=== PATIENT | female | born 1995 | race Caucasian/White ===

== ENCOUNTER 2020-04-28 06:19 | Inpatient (IN) | payer SELFPAY ==
[2020-04-28] MEDS ORDERED: Sodium Chloride 0.9% 10 ML Syringe FLUSH PRN (19:10)
[2020-04-28] MEDS ORDERED: Nalbuphine 10 MG/ML Syringe IVPUSH PRN (19:10)
[2020-04-28] MEDS ORDERED: Lidocaine 1% 50 ML MDV INJECT ONE (19:10)
[2020-04-28] MEDS ORDERED: Calcium Carbonate 500 MG Tab.Chew PO PRN (19:10)
[2020-04-28] MEDS ORDERED: Acetaminophen 325 MG Tab PO PRN (19:10)
[2020-04-28] MEDS ORDERED: Ondansetron 4 MG/2 ML SDV IVPUSH PRN (19:10)
[2020-04-28] MEDS ORDERED: Oxytocin/Lactated Ringers 10 UNIT/1,000 ML BAG IV SCH ×2 (19:15)
--- NOTE | 2020-04-28 20:02 | PCM.LDHP ---
L&D History of Present Illness - General Date of Service: 04/28/20 Admit Problem/Dx: Patient Status Order with Admit Dx/Problem 04/28/20 19:10 Patient Status [ADT] Routine Admission Diagnosis/Problem Admission Diagnosis/Problem - History of Present Illness Introduction:: 25 year old at 40w2 days with mild range pressures in clinic. - Related Data Allergies/Adverse Reactions: Allergies Allergy/AdvReac Type Severity Reaction Status Date / Time No Known Allergies Allergy Verified 04/28/20 19:12 H&P Review of Systems - Review of Systems: Review Of Systems: See Below General: Reports: No Symptoms HEENT: Reports: No Symptoms Pulmonary: Reports: No Symptoms Cardiovascular: Reports: No Symptoms Gastrointestinal: Reports: No Symptoms Genitourinary: Reports: No Symptoms Musculoskeletal: Reports: No Symptoms Skin: Reports: No Symptoms Psychiatric: Reports: No Symptoms Neurological: Reports: No Symptoms Hematologic/Lymphatic: Reports: No Symptoms Immunologic: Reports: No Symptoms L&D Exam - Exam Exam: See Below - Vital Signs Vital Signs: Last Vital Signs Temp 36.6 C 04/28/20 19:10 Pulse 83 04/28/20 19:10 Resp 18 04/28/20 19:10 BP 137/82 04/28/20 19:10 Pulse Ox 100 04/28/20 19:10 Weight: 108.862 kg - OB Specific Contraction Intensity: Mild to Moderate Movement: Active Heart Tones: Present Heart Rate (FHR) Variability: Moderate (6-25 bmp) Presentation: Vertex - Jackson Score Jackson Score Cervix Position: Midposition Jackson Score Consistency: Soft Jackson Score Effacement: 51-70% Jackson Score Dilation: 3-4 cm Jackson Score 's Station: -2 Jackson Score Total: 8 - Exam General: Alert, Oriented HEENT: PERRLA, Conjunctiva Clear, EACs Clear, EOMI, Hearing Intact, Mucosa Moist & [place], Nares Patent, Normal Nasal Septum, Posterior Pharynx Clear, TMs Clear Neck: Supple, Trachea Midline Lungs: Clear to Auscultation, Normal Respiratory Effort Cardiovascular: Regular Rate, Regular Rhythm GI/Abdominal Exam: Normal Bowel Sounds, Soft, Non-Tender, No Organomegaly, No Distention, No Abnormal Bruit, No Mass, Pelvis Stable Rectal Exam: Normal Exam Back Exam: Normal Inspection, Full Range of Motion Extremities: Normal Inspection, Normal Range of Motion, Non-Tender, No Pedal Edema, Normal Capillary Refill Skin: Warm, Dry, Intact Neurological: Cranial Nerves Intact, Reflexes Equal Bilateral Psychiatric: Alert, Normal Affect, Normal Mood Problem List Initiated/Reviewed/Updated: Yes Orders Last 24hrs: Active Orders 24 hr Category Date Time Status Patient Status [ADT] Routine ADT 04/28/20 19:10 Active Activity as Tolerated [RC] PFP Care 04/28/20 19:10 Active Communication Order [RC] ASDIRECTED Care 04/28/20 19:10 Active Non Stress Test [RC] PER UNIT ROUTINE Care 04/28/20 19:10 Active Notify Provider [RC] PFP Care 04/28/20 19:10 Active Notify Provider [RC] PRN Care 04/28/20 19:10 Active Peripheral IV Care [RC] . DIRECTED Care 04/28/20 19:10 Active Urinary Catheter Assessment [RC] ASDIRECTED Care 04/28/20 19:10 Active Vital Signs [RC] PER UNIT ROUTINE Care 04/28/20 19:10 Active Regular Diet [DIET] Diet 04/28/20 Breakfast Active CBC WITH AUTO DIFF [HEME] Stat Lab 04/28/20 19:27 Received RAPID PLASMA REAGIN,RPR [CHEM] Routine Lab 04/28/20 19:27 Received TYPE AND SCREEN [BBK] Stat Lab 04/28/20 19:27 Received Acetaminophen [Tylenol] Med 04/28/20 19:10 Active 650 mg PO Q4H PRN Calcium Carbonate [Tums] Med 04/28/20 19:10 Active 1,000 mg PO Q2H PRN Lactated Ringers [Ringers, Lactated] 1,000 ml Med 04/28/20 19:15 Active IV ASDIRECTED Nalbuphine [Nubain] Med 04/28/20 19:10 Active 10 mg IVPUSH Q2H PRN Ondansetron [Zofran] Med 04/28/20 19:10 Active 4 mg IVPUSH Q4H PRN Oxytocin/Lactated Ringers [Pitocin in LR 10 Units/1,000 Med 04/28/20 19:15 Active ML] 10 unit in 1,000 ml IV .CONTINUOUS Oxytocin/Lactated Ringers [Pitocin in LR 10 Units/1,000 Med 04/28/20 19:15 Active ML] 10 unit in 1,000 ml IV TITRATE Sodium Chloride 0.9% [Saline Flush] Med 04/28/20 19:10 Active 10 ml FLUSH ASDIRECTED PRN Electronic Heart Tones Ext w TOCO [WOMSER] Oth 04/28/20 19:10 Ordered Routine Electronic Heart Tones Internal [WOMSER] Per Unit Oth 04/28/20 19:10 Ordered Routine Peripheral IV Insertion Adult [OM.PC] Routine Oth 04/28/20 19:10 Ordered Resuscitation Status Routine Resus Stat 04/28/20 19:10 Ordered Medication Orders Acetaminophen (Tylenol) 650 mg PO Q4H PRN PRN Reason: Pain (Mild 1-3) and fever Calcium Carbonate/Glycine (Tums) 1,000 mg PO Q2H PRN PRN Reason: Indigestion Oxytocin/Lactated Ringer's (Pitocin In Lr 10 Units/1,000 Ml) 10 unit in 1,000 mls @ 12 mls/hr IV TITRATE DAMON; Protocol Oxytocin/Lactated Ringer's (Pitocin In Lr 10 Units/1,000 Ml) 10 unit in 1,000 mls @ 100 mls/hr IV .CONTINUOUS DAMON; Protocol Lactated Ringer's (Ringers, Lactated) 1,000 mls @ 100 mls/hr IV ASDIRECTED DAMON Nalbuphine HCl (Nubain) 10 mg IVPUSH Q2H PRN PRN Reason: Pain Ondansetron HCl (Zofran) 4 mg IVPUSH Q4H PRN PRN Reason: Nausea/Vomiting Sodium Chloride (Saline Flush) 10 ml FLUSH ASDIRECTED PRN PRN Reason: Keep Vein Open Assessment/Plan Comment:: 25 year old here for induction
[2020-04-28] MEDS: Lactated Ringers 1,000 ML IV SCH (22:29)
[2020-04-29] MEDS ORDERED: Bupivacaine 0.25% 10 ML SDV ONE
[2020-04-29] MEDS ORDERED: Bupivacaine/fentaNYL/NS 100 ML Bag EPIDUR PRN (00:03)
[2020-04-29] MEDS ORDERED: ePHEDrine 50 MG/ML SDV IVPUSH PRN (00:03)
[2020-04-29] MEDS ORDERED: diphenhydrAMINE 50 MG/ML SDV IVPUSH PRN (00:03)
[2020-04-29] MEDS ORDERED: fentaNYL 100 MCG/2 ML SDV EPIDUR PRN (00:03)
--- NOTE | 2020-04-29 00:43 | PCM.PREANE ---
Preanesthetic Assessment - Procedure Proposed Procedure: epidural - Anesthesia/Transfusion/Family Hx Anesthesia History: Prior Anesthesia Without Reaction Family History of Anesthesia Reaction: No Transfusion History: No Prior Transfusion(s) - Review of Systems General: Fatigue Pulmonary: No Symptoms Cardiovascular: No Symptoms Gastrointestinal: Abdominal Pain (labor) Neurological: No Symptoms Other: Reports: None - Physical Assessment Vital Signs: Last Vital Signs Temp 36.6 C 04/28/20 19:10 Pulse 83 04/28/20 19:10 Resp 18 04/28/20 19:10 BP 137/82 04/28/20 19:10 Pulse Ox 100 04/28/20 19:10 Height: 1.73 m Weight: 108.862 kg ASA Class: 2 Mental Status: Alert & Oriented x3 Airway Class: Mallampati = 1 Dentition: Reports: Normal Dentition Thyro-Mental Finger Breadths: 3 Mouth Opening Finger Breadths: 3 ROM/Head Extension: Full Lungs: Clear to Auscultation, Normal Respiratory Effort Cardiovascular: Regular Rate, Regular Rhythm - Lab Values: Laboratory Last Values WBC 12.19 K/mm3 (3.98-10.04) H 04/28/20 19: RBC 4.14 M/mm3 (3.98-5.22) 04/28/20 19: Hgb 12.5 gm/dl (11.2-15.7) 04/28/20 19: Hct 38.2 % (34.1-44.9) 04/28/20 19: MCV 92.3 fl (79.4-94.8) 04/28/20 19: MCH 30.2 pg (25.6-32.2) 04/28/20 19: MCHC 32.7 g/dl (32.2-35.5) 04/28/20 19: RDW Std Deviation 46.7 fL (36.4-46.3) H 04/28/20 19: Plt Count 190 K/mm3 (182-369) 04/28/20 19: MPV 10.7 fl (9.4-12.3) 04/28/20 19: Neut % (Auto) 73.8 % (34.0-71.1) H 04/28/20 19: Lymph % (Auto) 16.7 % (19.3-51.7) L 04/28/20: [place] % (Auto) 8.0 % (4.7-12.5) 04/28/20 19: Eos % (Auto) 0.9 (0.7-5.8) 04/28/20 19: Baso % (Auto) 0.2 % (0.1-1.2) 04/28/20 19: Neut # (Auto) 9.00 K/mm3 (1.56-6.13) H 04/28/20 19: Lymph # (Auto) 2.03 K/mm3 (1.18-3.74) 04/28/20 19: [place] # (Auto) 0.98 K/mm3 (0.24-0.36) H 04/28/20 19: Eos # (Auto) 0.11 K/mm3 (0.04-0.36) 04/28/20 19: Baso # (Auto) 0.02 K/mm3 (0.01-0.08) 04/28/20 19: SARS Virus RNA (PCR) Negative (NEGATIVE) 04/28/20 22:10 Blood Type A POSITIVE 04/28/20 19: Gel Antibody Screen Negative 04/28/20 19: - Allergies Allergies/Adverse Reactions: Allergies Allergy/AdvReac Type Severity Reaction Status Date / Time No Known Allergies Allergy Verified 04/28/20 19:12 - Anesthesia Plan Pre-Op Medication Ordered: None - Acknowledgements Anesthesia Type Planned: Epidural Pt an Appropriate Candidate for the Planned Anesthesia: Yes Alternatives and Risks of Anesthesia Discussed w Pt/Guardian: Yes Pt/Guardian Understands and Agrees with Anesthesia Plan: Yes PreAnesthesia Questionnaire HEENT History: Reports: Impaired Vision Other HEENT History: wears glasses Gastrointestinal History: Reports: GERD 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: Reports: Psychiatric History: Reports: Anxiety, Depression, Suicide Attempt - Infectious Disease History Infectious Disease History: Reports: Human Papilloma Virus (HPV) - Past Surgical History HEENT Surgical History: Reports: Adenoidectomy, Tonsillectomy - SUBSTANCE USE Smoking Status *Q: Never Smoker Second Hand Smoke Exposure: No Recreational Drug Use History: No - HOME MEDS Home Medications: Home Meds Vit/FA/Fe Fumarate/Se [ MTR] 1 tab PO DAILY 04/28/20 [History] Sertraline [Zoloft] 100 mg PO DAILY 04/28/20 [History] - CURRENT (IN HOUSE) MEDS Current Meds: Current Medications Acetaminophen (Tylenol) 650 mg PO Q4H PRN PRN Reason: Pain (Mild 1-3) and fever Calcium Carbonate/Glycine (Tums) 1,000 mg PO Q2H PRN PRN Reason: Indigestion Diphenhydramine HCl (Benadryl) 25 mg IVPUSH Q6H PRN PRN Reason: pruritis Ephedrine Sulfate (Ephedrine Sulfate) 5 mg IVPUSH ASDIRECTED PRN PRN Reason: Hypotension Fentanyl (Sublimaze) 100 mcg EPIDUR Q3H PRN PRN Reason: Pain Last Admin: 04/29/20 00:33 Dose: 100 mcg Documented by: Fentanyl/Bupivacaine HCl (Fentanyl/Bupivacaine/Ns 2 Mcg-0.125% 100 Ml) 100 ml EPIDUR ASDIRECTED PRN PRN Reason: Pain Last Admin: 04/29/20 00:34 Dose: 100 ml Documented by: Oxytocin/Lactated Ringer's (Pitocin In Lr 10 Units/1,000 Ml) 10 unit in 1,000 mls @ 12 mls/hr IV TITRATE DAMON; Protocol Last Titration: 04/28/20 23:10 Dose: 4 munits/min, 24 mls/hr Documented by: Oxytocin/Lactated Ringer's (Pitocin In Lr 10 Units/1,000 Ml) 10 unit in 1,000 mls @ 100 mls/hr IV .CONTINUOUS DAMON; Protocol Lactated Ringer's (Ringers, Lactated) 1,000 mls @ 100 mls/hr IV ASDIRECTED DAMON Last Admin: 04/28/20 22:29 Dose: 100 mls/hr Documented by: Nalbuphine HCl (Nubain) 10 mg IVPUSH Q2H PRN PRN Reason: Pain Ondansetron HCl (Zofran) 4 mg IVPUSH Q4H PRN PRN Reason: Nausea/Vomiting Sodium Chloride (Saline Flush) 10 ml FLUSH ASDIRECTED PRN PRN Reason: Keep Vein Open Discontinued Medications Lidocaine HCl (Xylocaine 1%) 50 ml INJECT ONETIME ONE Stop: 04/28/20 19:11
[2020-04-29] MEDS: Lactated Ringers 1,000 ML IV SCH ×2 (00:56→03:12)
--- NOTE | 2020-04-29 06:42 | PCM.SN.2 ---
- Free Text/Narrative Note: Stage I -Patient presented for induction for elevated blood pressures. Progressed to complete with AROM and pitocin. Epidural for anesthesia. Reassuring heart tones. Stage II - of viable female, 3430g, 6/9 APGARS at 619. Head delivered in controlled manner over intact perineum. Body and shoulders followed with Abelardo. To maternal abdomen. Cord clamped and cut at one minute. Baby to warmer. Stage III - of intact placenta. 3vc. No laceration.
[2020-04-29] MEDS ORDERED: Witch Hazel Medicated Pads 40/Jar TOP PRN (07:16)
[2020-04-29] MEDS ORDERED: Docusate Sodium 100 MG Cap PO PRN (07:16)
[2020-04-29] MEDS ORDERED: Benzocaine/Menthol 20%-0.5% Spray 56 GM Canister TOP PRN (07:16)
[2020-04-29] MEDS: Ibuprofen 600 MG Tab PO PRN (08:28)
[2020-04-29] MEDS ORDERED: Measles, Mumps & Rubella Vaccine 0.5 ML SDV SUBCUT ONE (20:03)
[2020-04-30] MEDS: Ibuprofen 600 MG Tab PO PRN (00:07)
--- NOTE | 2020-04-30 10:02 | PCM.DCSUM1 ---
Discharge Summary - Hospital Course Free Text/Narrative:: [facility] Provider Simple Note Patient Name: JUSTIN SPARKS Date of : 89 Patient Status: Inpatient Attending Provider: Odette Bergeron Date: 04/29/20 06:37 Initialization Date: 04/29/20 06:37 - Free Text/Narrative Note: Stage I -Patient presented for induction for elevated blood pressures. Progressed to complete with AROM and pitocin. Epidural for anesthesia. Reassuring heart tones. Stage II - of viable female, 3430g, 6/9 APGARS at 619. Head delivered in controlled manner over intact perineum. Body and shoulders followed with Abelardo. To maternal abdomen. Cord clamped and cut at one minute. Baby to warmer. Stage III - of intact placenta. 3vc. No laceration. HPI Initial Comments: [facility] Provider Simple Note Patient Name: JUSTIN SPARKS Date of : 89 Patient Status: Inpatient Attending Provider: Odette Bergeron Date: 04/29/20 06:37 Initialization Date: 04/29/20 06:37 - Free Text/Narrative Note: Stage I -Patient presented for induction for elevated blood pressures. Progressed to complete with AROM and pitocin. Epidural for anesthesia. Re assuring heart tones. Stage II - of viable female, 3430g, 6/9 APGARS at 619. Head delivered in controlled manner over intact perineum. Body and shoulders followed with Abelardo. To maternal abdomen. Cord clamped and cut at one minute. Baby to warmer. Stage III - of intact placenta. 3vc. No laceration. Brief History: [facility] . Provider Simple Note. [facility]: [id number] Date of : [birth year]Patient Status: Inpatient. Attending Provider: Odette BergeronAccount Number: [id number]. Date: 04/29/20 06:37Initialization Date: 04/29/20 06:37. - Free Text/Narrative. Note: Stage I -Patient presented for induction for elevated blood pressures. Progressed to complete with AROM and pitocin. Epidural for anesthesia. Reassuring heart tones. Stage II - of viable female, 3430g, 6/9 APGARS at 619. Head delivered in controlled manner over intact perineum. Body and shoulders followed with Abelardo. To maternal abdomen. Cord clamped and cut at one minute. Baby to warmer. Stage III - of intact placenta. 3vc. No laceration. Diagnosis: Stroke: No - Discharge Data Discharge Date: 04/30/20 Discharge Disposition: Home, Self-Care 01 Condition: Good - Referral to Home Health Primary Care Physician: Odette Bergeron MD - Discharge Diagnosis/Problem(s) (1) 40 weeks gestation of SNOMED Code(s): 42496658 ICD Code: Z3A.40 - 40 WEEKS GESTATION OF Status: Acute Current Visit: Yes (2) Normal delivery SNOMED Code(s): 32355061, 241939918 ICD Code: O80 - ENCOUNTER FOR FULL-TERM UNCOMPLICATED DELIVERY Status: Acute Current Visit: Yes - Patient Summary/Data Complications: None Consults: None Hospital Course: Uneventful - Patient Instructions Diet: Usual Diet as Tolerated Activity, Other: pelvic rest Driving: May Drive Today Showering/Bathing: May Shower Notify Provider of: Fever, Increased Pain, Swelling and Redness, Drainage, Nausea and/or Vomiting - Discharge Plan *PRESCRIPTION DRUG MONITORING PROGRAM REVIEWED*: Not Applicable *COPY OF PRESCRIPTION DRUG MONITORING REPORT IN PATIENT MAGY: Not Applicable Home Medications: Home Meds Vit/FA/Fe Fumarate/Se [ MTR] 1 tab PO DAILY 04/28/20 [History] Sertraline [Zoloft] 100 mg PO DAILY 04/28/20 [History] Benzocaine/Menthol [Dermoplast Pain Relief [place]] 1 spray TOP ASDIRECTED PRN canister 04/30/20 [Rx] Docusate Sodium [Colace] 100 mg PO BID PRN cap 04/30/20 [Rx] Ibuprofen [Motrin] 600 mg PO Q6H PRN tablet 04/30/20 [Rx] witch Analia [Tucks] 1 pad TOP ASDIRECTED PRN pad 06/27/20 [Rx] Referrals: Odette Bergeron MD [Primary Care Provider] - (2 weeks) - Discharge Summary/Plan Comment DC Time >30 min.: No - Patient Data Vitals - Most Recent: Last Vital Signs Temp 98.1 F 04/30/20 08:03 Pulse 77 04/30/20 08:03 Resp 16 04/30/20 08:03 BP 121/70 04/30/20 08:03 Pulse Ox 98 04/30/20 08:03 Weight - Most Recent: 240 lb Lab Results - Last 24 hrs: Laboratory Results - last 24 hr 04/28/20 Range/Units 19:27 RPR Non-reactive (NONREACTIVE) Med Orders - Current: Current Medications Benzocaine/Menthol (Dermoplast Pain Relief [place]) 0 gm TOP ASDIRECTED PRN PRN Reason: Perineal Comfort Measure Last Admin: 04/29/20 07:36 Dose: 1 applic Documented by: Docusate Sodium (Colace) 100 mg PO BID PRN PRN Reason: Constipation Ibuprofen (Motrin) 600 mg PO Q6H PRN PRN Reason: Mild pain or fever Last Admin: 04/30/20 00:07 Dose: 600 mg Documented by: Hali Felix (Rosaura) 1 pad TOP ASDIRECTED PRN PRN Reason: Pain Last Admin: 04/29/20 07:36 Dose: 1 applic Documented by: Discontinued Medications Acetaminophen (Tylenol) 650 mg PO Q4H PRN PRN Reason: Pain (Mild 1-3) and fever Bupivacaine HCl (Sensorcaine-Mpf 0.25%) 10 ml .ROUTE .STK-MED ONE Stop: 04/29/20 00:01 Calcium Carbonate/Glycine (Tums) 1,000 mg PO Q2H PRN PRN Reason: Indigestion Diphenhydramine HCl (Benadryl) 25 mg IVPUSH Q6H PRN PRN Reason: pruritis Ephedrine Sulfate (Ephedrine Sulfate) 5 mg IVPUSH ASDIRECTED PRN PRN Reason: Hypotension Fentanyl (Sublimaze) 100 mcg EPIDUR Q3H PRN PRN Reason: Pain Last Admin: 04/29/20 00:33 Dose: 100 mcg Documented by: Fentanyl/Bupivacaine HCl (Fentanyl/Bupivacaine/Ns 2 Mcg-0.125% 100 Ml) 100 ml EPIDUR ASDIRECTED PRN PRN Reason: Pain Last Admin: 04/29/20 00:34 Dose: 100 ml Documented by: Oxytocin/Lactated Ringer's (Pitocin In Lr 10 Units/1,000 Ml) 10 unit in 1,000 mls @ 12 mls/hr IV TITRATE DAMON; Protocol Last Titration: 04/29/20 03:10 Dose: 12 munits/min, 72 mls/hr Documented by: Oxytocin/Lactated Ringer's (Pitocin In Lr 10 Units/1,000 Ml) 10 unit in 1,000 mls @ 100 mls/hr IV .CONTINUOUS DAMON; Protocol Lactated Ringer's (Ringers, Lactated) 1,000 mls @ 100 mls/hr IV ASDIRECTED DAMON Last Admin: 04/29/20 03:12 Dose: 100 mls/hr Documented by: Lidocaine HCl (Xylocaine 1%) 50 ml INJECT ONETIME ONE Stop: 04/28/20 19:11 Last Admin: 04/29/20 06:45 Dose: Not Given Documented by: Measles/Mumps/Rubella Vaccine Live (M-M-R Ii Vaccine) 0.5 ml SUBCUT .ONCE ONE Stop: 04/29/20 20:04 Last Admin: 04/30/20 09:20 Dose: 0.5 ml Documented by: Nalbuphine HCl (Nubain) 10 mg IVPUSH Q2H PRN PRN Reason: Pain Ondansetron HCl (Zofran) 4 mg IVPUSH Q4H PRN PRN Reason: Nausea/Vomiting Last Admin: 04/29/20 06:40 Dose: 4 mg Documented by: Sodium Chloride (Saline Flush) 10 ml FLUSH ASDIRECTED PRN PRN Reason: Keep Vein Open
== END 2020-04-30 11:25 | disposition home or self-care (01) | DRG 807 ==
LOC: JD.OB 06:19 → OBSVTOIN 04-29 06:19 → JD.OB 04-29 06:20
PROVIDERS: ADMIT Obstetrics & Gynecology; ATTEND Obstetrics & Gynecology
PROC: 10E0XZZ Delivery of Products of Conception, External Approach (ICD-10-PCS; principal; 2020-04-29)
PROC: 10907ZC Drainage of Amniotic Fluid, Therapeutic from Products of Conception, Via Natural or Artificial Opening (ICD-10-PCS; 2020-04-29)
PROC: 3E033VJ Introduction of Other Hormone into Peripheral Vein, Percutaneous Approach (ICD-10-PCS; 2020-04-29)
PROC: 3E0R3BZ Introduction of Anesthetic Agent into Spinal Canal, Percutaneous Approach (ICD-10-PCS; 2020-04-29)
DX: O48.0 Post-term pregnancy (principal); O99.344 Other mental disorders complicating childbirth; F41.9 Anxiety disorder, unspecified; F32.9 Major depressive disorder, single episode, unspecified; Z37.0 Single live birth; Z3A.40 40 weeks gestation of pregnancy; Z79.899 Other long term (current) drug therapy
CPT/HCPCS: 36415; 51702; 59025; 59409; 85025; 86592; 86850; 86900; 86901; 90471; 90707; A9270-GY; J2405; J2590; J3010; J3490; J7120; U0002

== ENCOUNTER 2022-05-07 01:01 | Emergency (ER) | payer SELFPAY ==
[2022-05-07] MEDS ORDERED: Ondansetron 4 MG/2 ML SDV IVPUSH ONE ×2 (02:32→03:44)
[2022-05-07] MEDS ORDERED: Midazolam 1 MG/ML 2 ML SDV IVPUSH ONE ×2 (03:29→03:37)
[2022-05-07] MEDS ORDERED: Midazolam 1 MG/ML 2 ML SDV ONE (03:31)
[2022-05-07] MEDS ORDERED: LORazepam 2 MG/ML SDV IVPUSH ONE ×6 (07:05→17:08)
[2022-05-07] MEDS ORDERED: LORazepam 2 MG/ML SDV ONE (07:05)
[2022-05-07] MEDS ORDERED: Sodium Chloride 0.9% 1,000 ML IV ONE (09:39)
== END 2022-05-07 17:13 ==
LOC: JD.ED 01:01
DX: T43.221A Poisoning by selective serotonin reuptake inhibitors, accidental (unintentional), initial encounter (principal); R56.9 Unspecified convulsions; F10.120 Alcohol abuse with intoxication, uncomplicated; R11.2 Nausea with vomiting, unspecified; J96.01 Acute respiratory failure with hypoxia; Z20.822 Contact with and (suspected) exposure to COVID-19
CPT/HCPCS: 36415; 43752; 70450; 80053; 80143; 80175; 80179; 80306; 80307; 84443; 84703; 85025; 87635; 93005; 96374; 96375; 96376; 99285; J2060; J2250; J2405; J7030; 93010; 99291; U0002

== ENCOUNTER 2024-11-02 14:29 | Emergency (ER) | payer OTHER ==
[2024-11-02] MEDS: Lidocaine 1% 10 ML MDV INJECT ONE (16:00)
== END 2024-11-02 16:32 | disposition home or self-care (01) ==
LOC: JD.ED 14:29
DX: S61.412A Laceration without foreign body of left hand, initial encounter (principal); X58.XXXA Exposure to other specified factors, initial encounter; Y93.89 Activity, other specified
CPT/HCPCS: 12002; 99282; J3490

== ENCOUNTER 2025-08-30 14:19 | Emergency (ER) | payer OTHER ==
[2025-08-30] MEDS ORDERED: Sodium Chloride 0.9% 10 ML Syringe FLUSH PRN (14:34)
[2025-08-30 14:49] LABS: BASOPHILS ABSOLUTE AUTO 0.1 K/mm3 (0.0-0.2); BASOPHILS PERCENT AUTO 0.8 % (0.0-1.0); EOSINOPHILS ABSOLUTE AUTO 0.1 K/mm3 (0.0-0.4); EOSINOPHILS PERCENT AUTO 0.9 % (0.0-6.0); IMMATURE GRAN ABSOLUTE AUTO 0.02 K/mm3 (0.00-0.05); IMMATURE GRAN PERCENT AUTO 0.2 % (0.0-0.4); LYMPHOCYTES ABSOLUTE AUTO 2.0 K/mm3 (1.0-4.8); LYMPHOCYTES PERCENT AUTO 19.1 % (24.0-44.0); MEAN PLATELET VOLUME 10.3 fl (9.4-12.3); MONOCYTES ABSOLUTE AUTO 0.7 K/mm3 (0.0-0.8); MONOCYTES PERCENT AUTO 6.5 % (0.0-8.0); NEUTROPHILS ABSOLUTE AUTO 7.4 K/mm3 (1.8-7.7); NEUTROPHILS PERCENT AUTO 72.5 % (41.0-71.0); NRBC ABSOLUTE 0.00 (0.00-0.02); NRBC PERCENT 0.0 % (0.0-0.2); PLATELET COUNT,PLT 285 K/mm3 (150-400); RED BLOOD CELL COUNT 4.49 M/mm3 (4.10-5.30); WHITE BLOOD CELL COUNT,WBC 10.25 K/mm3 (3.9-11.3)
[2025-08-30 15:13] LABS: A/G RATIO 0.8 (1-2); ALANINE AMINOTRANSFERASE,ALT 31.0 U/L (14-59); ASPARTATE AMNIOTRANSFERASE,AST 13.0 U/L (15-37); BILIRUBIN TOTAL 0.9 mg/dL (0.2-1.0); BLOOD UREA NITROGEN,BUN 10.0 mg/dL (7-18); CARBON DIOXIDE,CO2 27.0 mEq/L (21-32); CHLORIDE,CL 104.0 mEq/L (98-107); CREATININE 0.8 mg/dL (0.55-1.02); EST CRCL DRUG DOSING (CG) 103.73 mL/min; ESTIMATED GFR 102.0 mL/min (>60); GLUCOSE RANDOM 108.0 mg/dL (70-99); POTASSIUM,K 3.7 mEq/L (3.5-5.1); PROTEIN TOTAL,TP 7.3 g/dl (6.4-8.2); SODIUM,NA 140.0 mEq/L (136-145)
== END 2025-08-30 16:41 | disposition home or self-care (01) ==
LOC: JD.ED 14:19
DX: R10.11 Right upper quadrant pain (principal); K21.9 Gastro-esophageal reflux disease without esophagitis; Z79.899 Other long term (current) drug therapy
CPT/HCPCS: 36415; 76705; 80053; 83690; 84703; 85025; 86140; 93005; 96360; 99284; J7030; 93010; 99283